=== PATIENT | female | born 1965 | race Caucasian/White ===

== ENCOUNTER 2024-05-26 08:10 | Outpatient (CLI) | payer SELFPAY | END 2024-05-26 08:11 | disposition home or self-care (01) | LOC: CSHSLEEP 08:10 | PROVIDERS: ATTEND Family Medicine | DX: G47.33 Obstructive sleep apnea (adult) (pediatric) (principal); R53.83 Other fatigue; R51.9 Headache, unspecified; E66.9 Obesity, unspecified; Z68.39 Body mass index [BMI] 39.0-39.9, adult; R06.83 Snoring; G47.10 Hypersomnia, unspecified | CPT/HCPCS: 95800 ==

== ENCOUNTER 2024-12-20 12:46 | Outpatient (CLI) | payer OTHER ==
[~2024-12-20 12:46] MED LIST: Iopamidol 300 61% 100 ML VIAL FS ONE
== END 2024-12-20 12:47 | disposition home or self-care (01) ==
LOC: CSHCT 12:46
PROVIDERS: ATTEND Family Medicine
DX: R10.9 Unspecified abdominal pain (principal); R10.30 Lower abdominal pain, unspecified; N28.9 Disorder of kidney and ureter, unspecified; K76.89 Other specified diseases of liver
CPT/HCPCS: 74178; Q9967